=== PATIENT | female | born 2000 | race Two or more races ===

== ENCOUNTER 2024-10-31 21:41 | Inpatient (IN) | payer MEDICAID, SELFPAY ==
[2024-10-31] VITALS (10 sets, daily range): BP systolic 118–175; BP diastolic 58–122; PULSE 68–112; RESP 18–100; TEMP 37.2; BMI 36.7
[2024-10-31] MEDS: MINERAL OIL 30 ML UDC TOP (22:43)
--- NOTE | 2024-10-31 23:00 | ESHP_ITS ---
Documentation for date of: 10/31/24 OB Labor/Induct. HPI History of Present Illness Chief complaint: painful ctx : 1 Para: 0 YOHANNES: 11/04/24 Gestational Age (weeks): 39 Gestational Age (days): 3 History of present illness: Patient presents with regular/painful ctx. No LOF, no vaginal bleeding. Feels normal movement. History of Present Dating criteria: based on LMP only Adequate Care: No (unknown) Obstetrical complications: none Labs Labs: Negative: Hepatitis B, HIV, Chlamydia, Gonorrhea and Group Beta Strep Review of Systems Review of Systems Narrative Review of Systems: Review of Systems Systems Reviewed: All systems reviewed, normal except as documented Constitutional Constitutional: Denies body ache(s), Denies chills, Denies fever(s) and Denies headache(s) ENT Ears, Nose, Mouth, and Throat: Denies headache(s) and Denies vertigo Cardiovascular Cardiovascular: Denies chest pain, Denies palpitations, Denies dyspnea and De nies syncope Respiratory Respiratory: Denies cough, Denies dyspnea Gastrointestinal Gastrointestinal: Denies nausea and Denies vomiting Neurologic Neurologic: Denies convulsions, Denies headache(s), Denies other visual disturbances, Denies syncope and Denies vertigo Past Medical History Surgical History OTHER SURGICAL HX: denies Social History SOCIAL: Denies tobacco/ETOH/illicit drug use Past Medical History Comments PMH COMMENT: Denies Meds Home Medications and Allergies Home Medications ?Medication ?Instructions ?Recorded ?Confirmed ?Type prenat.vits,flavio,jle-mavq-zzmti tab 10/31/24 History Allergies Allergy/AdvReac Type Severity Reaction Status Date / Time No Known Allergies Allergy Verified 10/31/24 21:53 OB Exam Physical Exam Vital signs: Temp Pulse Resp BP 99.0 F 68 18 137/79 H 10/31/24 21:52 10/31/24 22:18 10/31/24 21:52 10/31/24 22:18 Narrative: General: well developed, well nourished, no acute distress, conversant Cardiac: normal heart rate Lungs: breathing without distress Abdomen: soft, gravid, non-tender, no rebound or guarding Extremities: no pain with palpation of calves Detailed Labor and Delivery Exam Dilation (cm): 6 Effacement (%): 80 Cervix position: anterior station: -2 Consistency: soft Presentation: Vertex Membranes: intact monitor accelerations: 15x15 monitor decelerations: None intermodal dispatcher variability: Moderate (11-25) Contraction frequency (min): q2-4min OB Assessment & Plan Assessment and Plan (1) Active labor at term: Status: Acute Assessment and plan: Patient is a 24yo G1 with SIUP at 39+3wk presenting in active labor. Regular/painful contractions, SCE: 6/80/-2, intact. Vitals wnl, benign exam. Reassuring assessment. PMhx/ complicated by: Patient denies any complications but no records (only labs) available to review at time of admission (she has had PNC with [facility]) Plan: -Admit to L&D -Establish IV, routine labs -CEFM -Clear liquid diet -Gate Operator/consent re: -GBS status: negative -Anticipate -Safe to proceed
[2024-10-31] MEDS: OXYTOCIN in NS 20 units 20 UNIT/1,000 ML BAG 125 UNIT IV (23:37)
[2024-10-31] MEDS: LIDOCAINE HCL 1% 20 ML VIAL INFL (23:44)
[2024-10-31] MEDS: METHYLERGONOVINE INJ 0.2 MG/ML VIAL IM (23:46)
[2024-10-31] MEDS: BENZO/LANO/ALOE (Dermoplast) 60 GM CAN 1 SPRAY TOP (23:58)
[2024-11-01] VITALS (13 sets, daily range): BP systolic 99–144; BP diastolic 50–80; PULSE 71–94; RESP 16–18; TEMP 36.7–37.1; O2SAT 99
--- NOTE | 2024-11-01 00:04 | OBDSUM_ITS ---
Data (Ramirez) Data : 1 Para: 0 Term: 0 : 0 : 0 Delivery Data (Ramirez) Labor Data ROM Date: 10/31/24 ROM Time: 22:37 Rupture Type: AROM Amniotic Fluid: Clear Delivery Data Labor Onset Stage 1 Date: 10/31/24 Labor Onset Stage 1 Time: 17:00 Labor Onset Stage 2 Date: 10/31/24 Labor Onset Stage 2 Time: 22:10 Delivery Date: 10/31/24 Delivery Time: 23:37 Placenta Delivery Date: 10/31/24 Placenta Delivery Time: 23:42 Delivered by: Sierra Rodriguez Delivery nurse: Carla Jessica Other staff at delivery: 2nd Nurse Other staff at delivery: Marcia Cornelius Delivery Method Delivery: Vaginal Delivery Type: Spontaneous Anesthesia Type Primary Anesthesia: Local EBL Estimated blood loss (ml): 300 Additional Procedures Patient is a 24yo s/p uncomplicated at 39+3wk after presenting in active labor, delivering at 2337 on 10/31/2024. On presentation, SCE was 6cm. She progressed without pitocin augmentation to C/C/0 at which point she began pushing. She did not receive an epidural. With good maternal pushing efforts, 's head delivered OA and restituted SANDI. Left anterior shoulder delivered easily followed by posterior shoulder and corpus. Infant had spontaneous cry and was vigorous. Apgars 9/9. placed on maternal abdomen where nose/mouth were suctioned and infant dried/stimulated. After approximately 1 minute, cord was clamped x2 and cut by FOB. Cord blood collected for typing. With fundal massage and cord traction, placenta delivered spontaneously and intact with 3 vessel centrally inserted cord. Bimanual massage performed and IV pitocin given per protocol with fundus then firm at u-2cm and hemostasis noted. Inspection of perineum and vagina revealed a small 2nd degree midline perineal laceration which was repaired in routine fashion with 4-0 vicryl after anesthetizing with 1% lidocaine- total reapproximation and hemostasis achieved. Small trickle of blood, so sweep just within cervix/MANDI performed which retrieved a small amount of clot. 0.2mg IM methergine given with observed hemostasis after. All counts correct x2. Mom and were doing well when I left the room. Sierra Rodriguez MD Complications Complications: none Data (Ramirez) [place] Data Gender: Male Weight Grams: 3315 1 Minute Total: 9 5 Minute Total: 9
[2024-11-01 04:38] LABS: Basophils % (Auto) 0 % (0-2.5); Eosinophils # (Auto) 0.1 Thou/mm3 (0.0-0.5); Eosinophils % (Auto) 1 % (0-10); Hematocrit 33.2 % (36.0-46.0); Immature Granulocytes % (Auto) 0 % (0-0); Immature Granulocytes Auto 0.06 Thou/mm3 (0.00-0.00); Lymphocytes # (Auto) 2.7 Thou/mm3 (1.0-4.8); Lymphocytes % (Auto) 20 % (10-50); Mean Corpuscular HGB Conc 33.1 g/dl (31.0-37.0); Mean Corpuscular Hemoglobin 25.8 pg (25.0-35.0); Mean Corpuscular Volume 78 fL (80-100); Monocytes # (Auto) 1.1 Thou/mm3 (0.0-0.8); Monocytes % (Auto) 8 % (0-12); Neutrophils # (Auto) 9.8 Thou/mm3 (1.8-7.7); Neutrophils % (Auto) 71 % (37-80); Nucleated Red Blood Cell % 0 /100 WBC (0); Platelet Count 282 Thou/mm3 (140-440); RDW Standard Deviation 42.1 fL (36.4-46.3); Red Blood Count 4.27 Miln/mm3 (4.00-5.20); White Blood Count 13.8 Thou/mm3 (3.6-11.0)
[2024-11-01 04:41] LABS: Amphetamine/Metham Scrn,Ur OB Negative (Negative); Benzoylecgonine Screen, Ur OB Negative (Negative); Opiate Screen,Urine OB Negative (Negative); THC Screen,Urine OB Negative (Negative)
[2024-11-01 05:03] LABS: Syphilis Nonreactive (Nonreactive)
[2024-11-01] MEDS: DOCUSATE SOD 100 MG CAPSULE PO ×2 (08:21→19:51)
[2024-11-01 12:44] LABS: Basophils % (Auto) 0 % (0-2.5); Eosinophils % (Auto) 0 % (0-10); Hematocrit 28.8 % (36.0-46.0); Hemoglobin 9.5 g/dL (12.0-16.0); Immature Granulocytes % (Auto) 1 % (0-0); Immature Granulocytes Auto 0.12 Thou/mm3 (0.00-0.00); Lymphocytes # (Auto) 2.5 Thou/mm3 (1.0-4.8); Lymphocytes % (Auto) 14 % (10-50); Mean Corpuscular Hemoglobin 25.6 pg (25.0-35.0); Mean Corpuscular Volume 78 fL (80-100); Monocytes # (Auto) 1.9 Thou/mm3 (0.0-0.8); Monocytes % (Auto) 11 % (0-12); Neutrophils # (Auto) 13.1 Thou/mm3 (1.8-7.7); Neutrophils % (Auto) 74 % (37-80); Nucleated Red Blood Cell % 0 /100 WBC (0); Platelet Count 241 Thou/mm3 (140-440); RDW Standard Deviation 41.8 fL (36.4-46.3); Red Blood Count 3.71 Miln/mm3 (4.00-5.20); White Blood Count 17.6 Thou/mm3 (3.6-11.0)
[2024-11-01] MEDS: IBUPROFEN TAB 400 MG TABLET 800 MG PO (21:18)
[2024-11-02 00:32] VITALS: BP 102/64; PULSE 76; RESP 18; TEMP 36.8; O2SAT 99
[2024-11-02 04:05] VITALS: BP 100/60; PULSE 73; RESP 16; TEMP 36.6; O2SAT 99
--- NOTE | 2024-11-02 06:39 | ESDS_ITS ---
DS: Providers Provider Date of admission: 10/31/24 22:15 Primary care physician: Physician No Primary/Family Admitting Provider: Sierra Rodriguez MD Attending Provider on Admission: Sierra Rodriguez MD Consults: 11/01/24 00:00 Referral Routine Comment: Attending Provider on DC: Sierra Rodriguez MD Discharging Provider: Sierra Rodriguez MD DS: Diagnosis Discharge Diagnosis (1) Active labor at term: Status: Acute (2) Anemia, : Status: Acute Problem List Completed Was Problem List Reviewed/Reconciled?: Yes Summary/Hosp Course Brief History: Patient is a 24yo s/p uncomplicated at 39+3wk after presenting in active labor, delivering at 2337 on 10/31/2024. She has had an uncomplicated pos tpartum course, meeting all milestones and feels ready for discharge home. She is ambulating without lightheadedness, tolerating regular diet no n/v, spontaneously voiding without issue. She has no chest pain or shortness of breath. No fevers or chills. Minimal, appropriate discomfort. Vitals normal, benign exam. Hemodynamically stable with no evidence of infection. PP Hgb 9.5. Rx iron. Status at Discharge Functional status at discharge: independent ambulation Overall status at discharge: patient is back to baseline Time Spent with Patient Time attestation: Total time spent providing and/or coordinating discharge services: Exam Vital Signs Temp Pulse Resp BP Pulse Ox O2 Del Method 97.9 F 73 16 100/60 99 Room Air 11/02/24 04:05 11/02/24 04:05 11/02/24 04:05 11/02/24 04:05 11/02/24 04:05 11/02/24 04:05 Narrative Exam General: well developed, well nourished, no acute distress, conversant Cardiac: normal heart rate Lungs: breathing without distress Abdomen: soft, post-gravid, non-tender, no rebound or guarding, Fundus firm at u-3cm. Extremities: no pain with palpation of calves, trace edema of BLE Discharge Plan Plan Patient Disposition: HOME (Self Care) Patient condition on transfer: Stable Prescriptions/Referrals Prescriptions/Med Rec: New docusate sodium 100 mg Capsule 100 mg PO BID 10 Days Qty: 20 0RF ibuprofen 800 mg tablet 800 mg PO Q8H PRN (Reason: See Comments) 10 Days Qty: 30 0RF ferrous sulfate 325 mg (65 mg iron) tablet 325 mg PO QDAY Qty: 30 0RF Continued prenat.vits,flavio,[id number] Tablet Referrals: No Primary/Family,Physician [Primary Care Provider] - Patient/Caregiver Discharge Instructions Discharge Activity: activity as tolerated Other Discharge Activity Instructions:: vaginal rest and no heavy lifting greater than 10 pounds for 6 weeks. Other Discharge Diet Instructions: Regular Print Language: Hungarian Activity Restrictions/Additional Instructions: follow up for visit in 4 weeks, call clinic for appointment Stand Alone Forms: Stacie Award Info., Patient Portal Info Letter Discharge Order Discharge Orders: Discharge (Routine); Ordered 11/02/24 Ordered By: Sierra Rodriguez Planned Discharge Date 11/02/24
--- NOTE | 2024-11-02 06:43 | PC.NURSE ---
Dr. Rodriguez at bedside rounding, going over discharge plan with patient. all questions answered. no further inquiries at this time from Pt.
[2024-11-02 08:00] VITALS: BP 119/65; PULSE 78; RESP 16; TEMP 36.7; O2SAT 98
[2024-11-02 12:00] VITALS: BP 105/67; PULSE 77; RESP 18; TEMP 36.7; O2SAT 99
== END 2024-11-02 14:32 | disposition home or self-care (01) | DRG 560 ==
LOC: S4SX 22:35 → S4NX 11-01 02:11
PROVIDERS: Admitting Provider Obstetrics & Gynecology; Visit Provider Obstetrics & Gynecology
DX: O70.1 Second degree perineal laceration during delivery (principal); O90.81 Anemia of the puerperium; Z37.0 Single live birth; Z3A.39 39 weeks gestation of pregnancy
CPT/HCPCS: 36415; 59025; 59409; 80307; 85025; 86780; 86850; 86900; 86901; J2210; J2590; J3490; A9270